=== PATIENT | male | born 1995 | race Caucasian/White ===

== ENCOUNTER 2018-05-06 21:54 | Emergency (ER) | payer BC ==
[2018-05-06] MEDS: IBUPROFEN 600 MG TAB PO (22:00)
== END 2018-05-06 22:46 | disposition home or self-care (01) ==
LOC: M ED 21:54
DX: M25.562 Pain in left knee (principal); M25.561 Pain in right knee; G89.29 Other chronic pain; F31.9 Bipolar disorder, unspecified; F90.9 Attention-deficit hyperactivity disorder, unspecified type; F17.200 Nicotine dependence, unspecified, uncomplicated; Z91.02 Food additives allergy status; Z79.899 Other long term (current) drug therapy
CPT/HCPCS: 99283